=== PATIENT | female | born 1955 | race Caucasian/White ===

== ENCOUNTER 2017-11-23 12:45 | Inpatient (IN) ==
[2017-11-23] MEDS ORDERED: IPRATROPIUM/ALBUTEROL SULFATE 3 ML NEB NEB ONE (13:46)
[2017-11-23] MEDS ORDERED: Sodium Chloride 0.9% 1,000 ML PRIMARY IV ONE ×2 (13:46→14:05)
[2017-11-23] MEDS ORDERED: NORMAL SALINE 10 ML SYRINGE FLUSH IVP PRN ×3 (13:46→17:17)
[2017-11-23] MEDS ORDERED: cefTRIAXone Inj 1 GM in Sodium Chloride 0.9% 100 ML IV ONE (13:49)
[2017-11-23] MEDS ORDERED: ONDANSETRON 4 MG/2 ML VIAL IVP ONE (14:05)
[2017-11-23] MEDS ORDERED: LORazepam 2 MG/1 ML VIAL IVP ONE (14:06)
[2017-11-23 14:10] LABS: Hematocrit [HCT] 53.9 % (37.0-47.0); Hemoglobin [HGB] 18.4 g/dL (12.0-16.0); MEAN CORPUSCULAR HEMOGLOBIN 29.7 PG (27-31); MEAN CORPUSCULAR HGB CONC 34.1 g/dL (33-37); MEAN CORPUSCULAR VOLUME 86.9 FL (81-99); MEAN PLATELET VOLUME 11.2 FL (7.4-12.2)
[2017-11-23 14:22] LABS: PLATELET MORPHOLOGY COMMENT NORMAL MORPHOLOGY (NORM); RBC MORPHOLOGY COMMENT NORMAL MORPHOLOGY (NORM)
[2017-11-23 14:23] LABS: BAND NEUTROPHILS % 7 % (0-10); BASOPHILS % (MANUAL) 0 % (0-1); EOSINOPHILS % (MANUAL) 0 % (0-8); MONOCYTES % (MANUAL) 6 % (0-12); NEUTROPHILS % (MANUAL) 73 % (50-80); WBC MORPHOLOGY COMMENT SEE COMMENTS (NORM)
[2017-11-23 14:56] LABS: LIPASE 26 IU/L (23-300)
[2017-11-23 15:25] LABS: BLOOD UREA NITROGEN 11 mg/dL (7-22); BUN/CREATININE RATIO 15.71 (6-20); SERUM ALBUMIN 4.3 g/dL (3.5-4.8)
[2017-11-23] MEDS ORDERED: ACETAMINOPHEN 500 MG TABLET PO ONE ×2 (15:42→15:45)
[2017-11-23] MEDS ORDERED: Sodium Chloride 0.9% 250 ML IV ONE (15:47)
[2017-11-23] MEDS ORDERED: ONDANSETRON 4 MG/2 ML VIAL IVP PRN (17:17)
[2017-11-23] MEDS ORDERED: LIDOCAINE W/ SODIUM BICARB 0.5 ML SYR SUBD PRN (17:17)
--- NOTE | 2017-11-23 17:23 | PDOC ---
HPI - History of Present Illness Date of Service: 11/23/17 Time of Service: 17:30 Chief Complaint: Cough, body aches, fever and shakes of few days duration History of Present Illness: This is a 62 years old female with medical history significant for history of hypothyroidism on replacement who was sent to the ER from the urgent clinic, she described a history of cough that started the beginning of the month with no much phlegm production. the last few days she started to have fever, shakes , body aches and joint pains, pain in the front of the chest and also the lower back that goes to the front described as cramping in her abdomen with shortness of breath she was taking Tylenol every 3 hours however she did not check her temperature. Because of all the symptoms she came into the urgent care she was found to have an elevated white count of 24,000, chest x-ray showed lingular pneumonia so she was sent to the ER. In the ER blood culture was taken and she was given fluid and started on antibiotics with Rocephin and Zithromax and was admitted. She said she feels better compared to when she came in. Past Medical History Medical History: 1. History of hypothyroidism on replacement. 2. History of diverticulitis before Surgical History: 1. History of umbilical hernia repair. 2. Status post hemorrhoidectomy Pertinent Family History: Father had colon cancer Past Social History: She said she used to smoke quit 38 years ago she said she smoked 2 packs a day for about 10 years. Doesn't drink or drugs. Tobacco Use: Former Smoker In the Past 12 Months, Have Used or Abuse Any of the Following Substance: None Medication / Allergies Home Medications: Home Medications 3 Medication Instructions Recorded Confirmed Type levothyroxine 112 mcg tablet 112 mcg PO QOD #45 tab 07/13/17 11/23/17 Rx levothyroxine 125 mcg tablet 125 mcg PO QOD #45 tab 07/13/17 11/23/17 Rx mupirocin 2 % topical cream 1 applic TOPICAL BID #15 g 07/13/17 11/23/17 Rx Allergies/Adverse Reactions: Allergies 3 Allergy/AdvReac Type Severity Reaction Status Date / Time Penicillins Allergy Severe RASH Verified 11/23/17 12:51 pseudoephedrine HCl Allergy yeast Verified 11/23/17 12:51 [From Sudafed] Sulfa (Sulfonamide Allergy HIVES Verified 11/23/17 12:51 Antibiotics) Review of Systems - Review of Systems All Systems: Reviewed & No Additional Complaints Except as Stated Exam - Vitals Vital Signs: Vital Signs Respiratory Rate 24 Oxygen Flow Rate 2 Oxygen Delivery Method Nasal Cannula Height 5 ft Weight 177 lb - General Additional General Exam Details: Appears tired - Head Head Exam: Normal Inspection - Eye Eye Exam: POSITIVE: Normal Appearance - ENT ENT Exam: POSITIVE: Normal Exam - Neck Neck Exam: Normal Inspection - Respiratory Additional Respiratory Exam Details: Decreased air entry otherwise clear - Cardiovascular Cardiovascular Exam: POSITIVE: RRR - GI/Abdominal GI/Abdominal Exam: POSITIVE: Normal Bowel Sounds, Non Tender, Non Distended, Soft, No Organomegaly - Rectal Rectal Exam: POSITIVE: Deferred - External Exam: POSITIVE: Deferred - Extremities Extremities Exam: POSITIVE: Normal Inspection - Back Back Exam: POSITIVE: Normal Inspection - Neurological Neurological Exam: POSITIVE: Alert, Oriented x 3, CN II-XII Intact, Speech Intact / Clear, Moves All Extremities Equally - Psychiatric Psychiatric Exam: POSITIVE: Normal Affect - Integumentary Integumentary Exam: POSITIVE: Normal Color Results - Labs CBC and BMP: 11/23/17 14:09 11/23/17 14:09 Assessment and Plan - Patient Problems (1) Community acquired pneumonia Current Visit: Yes Status: Acute Comment: She did receive antibiotic Zithromax and Rocephin will continue with it. Will continue with IV fluid Code(s): J18.9 - Pneumonia, unspecified organism (2) Hypothyroidism Current Visit: Yes Status: Acute Comment: Continue previous medications Code(s): E03.9 - Hypothyroidism, unspecified
--- NOTE | 2017-11-23 17:37 | PDOC ---
General Adult HPI - General Chief Complaint: Dyspnea Stated Complaint: dyspnea Date Seen by Provider: 11/23/17 Time Seen by Provider: 13:15 Source: POSITIVE: Patient, Spouse, Old records Exam Limitations: POSITIVE: No limitations Nurse's Notes Reviewed & Considered: Yes - History of Present Illness Initial Comment: The patient is a 62-year-old female. She states that she has been "sick" since around November 09 with some cough. She became considerably worse over the last few days and thinks that she has been running fevers, although she has not taken her temperature. She states she's had some chills. She was seen by a provider at the clinic earlier today who did a chest x-ray and the chest x-ray showed a right lingular pneumonia. CBC done at the clinic showed a white blood cell count of 24,850 with a hemoglobin of 13.8 and hematocrit of 41.5. BNP was normal. Patient was sent from the clinic to the emergency room for further evaluation and patient does not smoke. She has no known cardiopulmonary problems. Have you received a tetanus shot in the past 10 years?: Yes Body Location Affected: REPORTS: Chest Timing: REPORTS: Gradual, Getting Worse Duration: >1 week Severity: Moderate Quality: REPORTS: Other (No pain) Context: REPORTS: None Modifying Factors: improves with: Coughing, Other (Fever and chills) Similar Symptoms Previously: No Recent Care Received: REPORTS: Recently Seen (As above) Any Prior Injuries Related to Current Complaint?: No - Patient Home Medications Home Medications: Home Medications levothyroxine 112 mcg tablet 112 mcg PO QOD #45 tab 07/13/17 levothyroxine 125 mcg tablet 125 mcg PO QOD #45 tab 07/13/17 mupirocin 2 % topical cream 1 applic TOPICAL BID #15 g 07/13/17 - Patient Allergies Allergies/Adverse Reactions: Allergies 3 Allergy/AdvReac Type Severity Reaction Status Date / Time Penicillins Allergy Severe RASH Verified 11/23/17 12:51 pseudoephedrine HCl Allergy yeast Verified 11/23/17 12:51 [From Sudafed] Sulfa (Sulfonamide Allergy HIVES Verified 11/23/17 12:51 Antibiotics) Past Medical History - heen HEENT History: Denies History Cardiovascular History: Denies History Respiratory History: Denies History Gastrointestinal History: Denies History Genitourinary History: Denies History Endocrine History: Hypothyroidism Musculoskeletal History: Denies History Prosthesis or Implant: No Neurological History: Denies History Blood Disorders: Denies History Psychiatric History: Denies History Female Reproductive History: Denies History Obstetrical History: Denies History Cancer History: Denies History In Past Year Been Physically Harmed or Verbally Threatened: No History of MDRO: No Tobacco Use: Never Smoker In the Past 12 Months, Have Used or Abuse Any Substance: None Previous Surgical History: Yes Type / Date of Surgery: hernia repair, , hemrhoidectomy Anesthesia Reactions: No Malignant Hyperthermia: No Family History of Malignant Hyperthermia: No Significant Family History: No pertinent family hx Past Medical History Reviewed: Reviewed - No Changes ROS - Limitations ROS Limitations: No Limitations Constitution: REPORTS: Denies Symptoms Cardiovascular: REPORTS: Denies Cardiac Symptoms Respiratory: REPORTS: Cough Productive Neurological: REPORTS: Denies Neuro Symptoms Gastrointestinal: REPORTS: Denies GI Symptoms Endocrine: REPORTS: Denies Symptoms Musculoskeletal: REPORTS: Denies MS Symptoms Genitourinary: REPORTS: Denies Symptoms Eyes: REPORTS: Denies Symptoms ENT: REPORTS: Denies Symptoms Skin: REPORTS: Denies Skin Symptoms Lympathic: REPORTS: Denies Lympathic Symptoms Immunologic: POSITIVE: Denies Symptoms Psychiatric: POSITIVE: Denies Psych Symptoms General Adult Exam - General Appearance General Appearance: POSITIVE: Alert, Cooperative, No Acute Distress, No Evidence of Trauma - HEENT HEENT: POSITIVE: Head Inspection Nml, Eyes Inspection Nml, Ears Inspection Nml, Nose Inspection Nml, Oral/Dental Inspect. Nml, Pharynx Inspect. Nml, PERRL, EOMI - Pupils Pupil Size: 3 mm: Bilateral (PERRLA) - Neck Neck: POSITIVE: Normal Inspection, Thyroid Normal - Respiratory Respiratory: POSITIVE: No Respiratory Distress, Chest Non-Tender, Rhonchi (Left lung field). NEGATIVE: Breath Sounds Normal - Cardiovascular Cardiovascular: POSITIVE: Regular Rate & Rhythm, No Murmur, No Gallop, PMI Normal Peripheral Pulses: Radial (R): 2+, Radial (L): 2+ - Abdomen Abdomen: Soft: (All Quadrants), Normal Bowel Sounds: (All Quadrants), Denies Tenderness: (All Quadrants), No Splenomegaly: (All Quadrants), No Hepatomegaly: (All Quadrants), No Guarding: (All Quadrants), No Rebound: (All Quadrants), No Palpable Pulse: (All Quadrants), No Palpabale Mass: (All Quadrants), No Distention: (All Quadrants), No Rigidity: (All Quadrants) - Back Back: POSITIVE: Normal Inspection - Skin Skin: POSITIVE: Normal Color, Warm, Dry, No Rash - Extremities Extremity: Non-Tender: (All Extremities), Normal ROM: (All Extremities), Normal Inspection: (All Extremities) - Neurological / Psychological Neurological: POSITIVE: Oriented X3, 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 Patient given a DuoNeb nebulizer treatment. Patient developed a headache and patient was given Tylenol for this, as well as her fever. Status: POSITIVE: Unchanged, Re-Examined Antibiotics Given: Yes Quality Measure Initiative: CAP: POSITIVE: SaO2, Antibiotic(s), BC, CXR or CT - Consult Consult (If Yes, Name of Consulting MD & Time Called): Yes (Dr. Durham, hospitalist, [id number]) Consulting MD will see pt:: POSITIVE: [facility] Admit Counseled: POSITIVE: Patient, Family, RE: Lab Results, RE: Radiology Results, RE : DX, RE: Need for F/U Patient Care Time - Estimated PCT Patient Care Time (In Minutes): 45 Vital Signs - Recent Vital Signs Vital Signs: Vital Signs (Last 8 hours) Temp Pulse Pulse Resp BP Pulse Ox 11/23/17 17:23 102.9 F H 118 H 24 127/63 93 11/23/17 16:18 24 11/23/17 15:46 102.4 F H 11/23/17 15:45 102.4 F H 120 H 20 122/98 94 11/23/17 14:27 96 18 94 11/23/17 14:26 95 18 92 11/23/17 12:45 99.3 F 97 18 153/109 98 - VS Reviewed Vital Signs Reviewed: Yes Discharge Clinical Impression: Pneumonia Discharge Disposition: Admit to Inpatient Condition: Stable Date Decision to Admit to Inpatient: 11/23/17 Time Decision to Admit to Inpatient: 14:45
[2017-11-23] MEDS: Sodium Chloride 0.9% 1,000 ML PRIMARY IV SCH (18:07)
--- NOTE | 2017-11-23 18:10 | EKG ---
[address] [address] Measurements Intervals [place] Rate: 92 P: 53 ID: [id number] QRS: 41 QRSD: 85 T: 43 QT: 342 QTc: 392 Interpretive Statements SINUS RHYTHM No previous ECG available for comparison Electronically Signed On 11-24-17 08:49:05 MDT by Ronnell Burk MD [email or web address]
[2017-11-23] MEDS ORDERED: KETOROLAC 15 MG/1 ML VIAL IVP PRN (19:11)
[2017-11-23] MEDS: traMADol 50 MG TABLET PO PRN (20:44)
[2017-11-24] MEDS: ACETAMINOPHEN 325 MG TABLET PO PRN ×2 (01:32→16:21)
[2017-11-24] MEDS: Sodium Chloride 0.9% 1,000 ML PRIMARY IV SCH ×4 (02:00→22:35)
[2017-11-24] MEDS: traMADol 50 MG TABLET PO PRN ×3 (04:52→20:53)
[2017-11-24] MEDS ORDERED: LEVOTHYROXINE 112 MCG TABLET PO SCH (05:30)
[2017-11-24 05:54] LABS: BASOPHILS # (AUTO) 0.02 10*3/UL; BASOPHILS % (AUTO) 0.1 % (0-1); EOSINOPHILS # (AUTO) 0.09 10*3/UL; EOSINOPHILS % (AUTO) 0.5 % (0-8); Hematocrit [HCT] 33.1 % (37.0-47.0); Hemoglobin [HGB] 10.6 g/dL (12.0-16.0); LYMPHOCYTES # (AUTO) 2.07 10*3/uL; MEAN CORPUSCULAR VOLUME 90.7 FL (81-99); MEAN PLATELET VOLUME 11.7 FL (7.4-12.2); MONOCYTES # (AUTO) 2.07 10*3/UL (0.3-0.8); MONOCYTES % (AUTO) 12.3 % (5-15); NEUTROPHILS # (AUTO) 12.53 10*3/UL; NEUTROPHILS % (AUTO) 74.4 % (50-80); RED BLOOD COUNT 3.65 10^6/uL (4.20-5.40)
[2017-11-24 06:06] LABS: BLOOD UREA NITROGEN 10 mg/dL (7-22); BUN/CREATININE RATIO 14.28 (6-20); PLATELET MORPHOLOGY COMMENT NORMAL MORPHOLOGY (NORM); RBC MORPHOLOGY COMMENT NORMAL MORPHOLOGY (NORM); SERUM ALBUMIN 3.1 g/dL (3.5-4.8); WBC MORPHOLOGY COMMENT NORMAL MORPHOLOGY (NORM)
[2017-11-24] MEDS: IPRATROPIUM/ALBUTEROL SULFATE 3 ML NEB NEB PRN ×2 (06:41→13:18)
--- NOTE | 2017-11-24 11:20 | PDOC(PROG) ---
Date and Time of Service: 11/24/2017 11:18 AM Interval History: Subjective Patient feels somewhat better compared to yesterday. She has some mild headache , breathing improved. Cough still dry. Objective : Data - Labs CBC and BMP: 11/24/17 04:53 11/24/17 04:53 Objective : Exam - General General Appearance: No Acute Distress, Cooperative - Head Head Exam: Normal Inspection - Eye Eye Exam: Normal Appearance - ENT ENT Exam: Normal Exam - Neck Neck Exam: Normal Inspection - Respiratory Additional Respiratory Exam Details: Decreased air entry otherwise clear - Cardiovascular Cardiovascular Exam: RRR - GI/Abdominal GI/Abdominal Exam: Normal Bowel Sounds, Non Tender, Non Distended, Soft, No Organomegaly - Rectal Rectal Exam: Deferred - External Exam: Deferred - Extremities Extremities Exam: Normal Inspection - Back Back Exam: Normal Inspection - Neurological Neurological Exam: Alert, Oriented x 3, CN II-XII Intact, Speech Intact / Clear , Moves All Extremities Equally - Psychiatric Psychiatric Exam: Normal Affect Assessment and Plan - Patient Problems (1) Community acquired pneumonia Current Visit: Yes Status: Acute Comment: Continue current antibiotics, cut back on the fluid. Her white count did improve will repeat tomorrow. Code(s): J18.9 - Pneumonia, unspecified organism (2) Hypothyroidism Current Visit: Yes Status: Acute Comment: Same med Code(s): E03.9 - Hypothyroidism, unspecified
[2017-11-24] MEDS: cefTRIAXone Inj 2 GM in Sodium Chloride 0.9% 100 ML IV SCH (14:24)
[2017-11-24] MEDS: GUAIFENESIN 600 MG TABLET PO SCH (20:54)
[2017-11-25] MEDS ORDERED: LEVOTHYROXINE 112 MCG PO SCH (05:30)
[2017-11-25] MEDS ORDERED: LEVOTHYROXINE 125 MCG PO SCH (05:30)
[2017-11-25] MEDS ORDERED: LEVOTHYROXINE 125 MCG TABLET PO SCH (05:30)
[2017-11-25 05:36] LABS: BASOPHILS # (AUTO) 0.02 10*3/UL; BASOPHILS % (AUTO) 0.3 % (0-1); EOSINOPHILS # (AUTO) 0.27 10*3/UL; EOSINOPHILS % (AUTO) 3.4 % (0-8); Hematocrit [HCT] 32.3 % (37.0-47.0); Hemoglobin [HGB] 10.3 g/dL (12.0-16.0); LYMPHOCYTES # (AUTO) 1.97 10*3/uL; MEAN CORPUSCULAR HEMOGLOBIN 29.1 PG (27-31); MEAN CORPUSCULAR HGB CONC 31.9 g/dL (33-37); MEAN CORPUSCULAR VOLUME 91.2 FL (81-99); MEAN PLATELET VOLUME 11.7 FL (7.4-12.2); MONOCYTES # (AUTO) 0.89 10*3/UL (0.3-0.8); MONOCYTES % (AUTO) 11.2 % (5-15); NEUTROPHILS # (AUTO) 4.76 10*3/UL; NEUTROPHILS % (AUTO) 59.6 % (50-80); RED BLOOD COUNT 3.54 10^6/uL (4.20-5.40)
[2017-11-25 05:50] LABS: PLATELET MORPHOLOGY COMMENT NORMAL MORPHOLOGY (NORM); RBC MORPHOLOGY COMMENT NORMAL MORPHOLOGY (NORM); WBC MORPHOLOGY COMMENT NORMAL MORPHOLOGY (NORM)
[2017-11-25] MEDS: IPRATROPIUM/ALBUTEROL SULFATE 3 ML NEB NEB PRN ×2 (07:00→13:32)
[2017-11-25] MEDS: ACETAMINOPHEN 325 MG TABLET PO PRN (07:28)
[2017-11-25] MEDS: GUAIFENESIN 600 MG TABLET PO SCH (08:22)
--- NOTE | 2017-11-25 09:38 | DCSUMMARY ---
Hospitalization Summary Admit Date: 11/23/2017 Discharge Date: 11/25/17 Hospital Course: Discharge diagnoses 1. Lingular pneumonia 2. History of hypothyroidism Hospital course This is a 62 years old female with medical history significant for history of hypothyroidism on replacement who was sent to the ER from the urgent clinic for evaluation, she described a history of cough that started the beginning of the month with no much phlegm production. The last few days she started to have fever, shakes, body aches and joint pains, pain in the front of the chest and also the lower back that goes to the front described as cramping her abdomen. She did report shortness of breath she was taking Tylenol every 3 hours although she did not check her temperature. Because of all the symptoms she went into the urgent clinic she was found to have an elevated white count of 24, 000 chest x-ray showed lingular pneumonia so she was sent to the ER. In the ER blood culture was taken and she was giving fluids and started antibiotics with Rocephin and Zithromax and was admitted. we continued with antibiotics and there was gradual improvement in her symptoms. On the day of discharge she felt much better compared to when she came in. She was off oxygen initially she needed to be on 2 L of oxygen. Her white count was down to 7.9, her exam was unremarkable lungs were clear. We thought that she could be discharged home we gave her another IV dosage of antibiotics and will switch to oral after that. She will need follow-up with her primary to make sure she continue to improve and to have a repeat x-ray in 2-3 weeks. Urine culture showed growth of beta hemolytic group B streptococcus of unclear significance this was collected by the urgent care. Laboratory Results 11/25/17 Range/Units 04:40 WBC 7.97 (4.8-10.8) 10^3/uL RBC 3.54 L (4.20-5.40) 10^6/uL Hgb 10.3 L (12.0-16.0) g/dL Hct 32.3 L (37.0-47.0) % MCV 91.2 (81-99) FL MCH 29.1 (27-31) PG MCHC 31.9 L (33-37) g/dL RDW Std Deviation 48.5 (39-50) fL RDW Coeff of [place] 14.9 H (11.5-14.5) % Plt Count 220 (140-350) 10*3/uL MPV 11.7 (7.4-12.2) FL Immature Gran % (Auto) 0.8 (0-5) % Neut % (Auto) 59.6 (50-80) % Lymph % (Auto) 24.7 (10-50) % Patrick % (Auto) 11.2 (5-15) % Eos % (Auto) 3.4 (0-8) % Baso % (Auto) 0.3 (0-1) % Immature Gran # (Auto) 0.06 10*3/UL Neut # (Auto) 4.76 10*3/UL Lymph # (Auto) 1.97 10*3/uL Patrick # (Auto) 0.89 H (0.3-0.8) 10*3/UL Eos # (Auto) 0.27 10*3/UL Baso # (Auto) 0.02 10*3/UL WBC Morphology Comment Normal morphology (NORM) Plt Morphology Comment Normal morphology (NORM) RBC Morph Comment Normal morphology (NORM) Discharge instruction Diet regular Activity as tolerated Medications Current Medication(s) 3 Medication Instructions Recorded Confirmed Type levothyroxine 112 mcg tablet 112 mcg PO QOD #45 tab 07/13/17 11/23/17 Rx levothyroxine 125 mcg tablet 125 mcg PO QOD #45 tab 07/13/17 11/23/17 Rx mupirocin 2 % topical cream 1 applic TOPICAL BID #15 g 07/13/17 11/23/17 Rx Azithromycin [Zithromax] 250 mg PO DAILY #4 tab 11/25/17 Rx Cefdinir Cap [Omnicef Cap] 300 mg PO BID #8 cap 11/25/17 Rx guaiFENesin ER Tab [Mucinex ER 600 mg PO BID tab 11/25/17 Rx Tab] Follow-up with her PCP in 1-2 weeks Condition at discharge was stable for discharge Exam - Vitals Vital Signs: Vital Signs Temperature 97.4 F Temperature Source Temporal Artery Scan Pulse Rate [Apical] 72 Pulse Rate [Pulse Oximeter] 83 Pulse Rate 76 Respiratory Rate 18 Blood Pressure [Left Arm] 136/79 Blood Pressure [Right Arm] 144/86 Pulse Ox 92 Oxygen Flow Rate 93 Oxygen Delivery Method Room Air Height 5 ft Weight 179 lb 12.8 oz - General General Appearance: No Acute Distress, Cooperative - Head Head Exam: Normal Inspection - Eye Eye Exam: POSITIVE: Normal Appearance - ENT ENT Exam: POSITIVE: Normal Exam - Neck Neck Exam: Normal Inspection - Respiratory Respiratory Exam: POSITIVE: Clear to Auscultation - Bilaterally - Cardiovascular Cardiovascular Exam: POSITIVE: RRR - GI/Abdominal GI/Abdominal Exam: POSITIVE: Normal Bowel Sounds, Non Tender, Non Distended, Soft, No Organomegaly - Rectal Rectal Exam: POSITIVE: Deferred - External Exam: POSITIVE: Deferred Exam: POSITIVE: Deferred - Extremities Extremities Exam: POSITIVE: Normal Inspection - Back Back Exam: POSITIVE: Normal Inspection - Neurological Neurological Exam: POSITIVE: Alert, Oriented x 3, CN II-XII Intact, Speech Intact / Clear, Moves All Extremities Equally - Psychiatric Psychiatric Exam: POSITIVE: Normal Affect Patient Problems - Patient Problem List (1) Community acquired pneumonia Status: Acute Code(s): J18.9 - Pneumonia, unspecified organism Category: Medical (2) Hypothyroidism Status: Acute Code(s): E03.9 - Hypothyroidism, unspecified Category: Medical
[2017-11-25] MEDS: Sodium Chloride 0.9% 1,000 ML PRIMARY IV SCH (10:00)
[2017-11-25 13:01] VITALS: BP 155/75; TEMP 97.2
[2017-11-25] MEDS ORDERED: CEFTRIAXONE SODIUM 2 GM VIAL IV ONE (13:07)
[2017-11-25] MEDS: cefTRIAXone Inj 2 GM in Sodium Chloride 0.9% 100 ML IV SCH (13:09)
[2017-11-25 13:34] VITALS: RESP 16
[2017-11-25 15:17] VITALS: O2SAT 95
[2017-11-26] MEDS ORDERED: LEVOTHYROXINE 112 MCG PO SCH (05:30)
[2017-11-26] MEDS ORDERED: LEVOTHYROXINE 125 MCG PO SCH (05:30)
== END 2017-11-25 15:56 | disposition home or self-care (01) | DRG 195 ==
LOC: ER 12:45 → MED/SURG 16:06
PROVIDERS: ADMIT Internal Medicine; ATTEND Internal Medicine